=== PATIENT | female | born 1940 | race Caucasian/White ===

== ENCOUNTER 2019-04-09 17:12 | Observation (INO) | payer MEDICARE ==
[2019-04-09 18:01] LABS: Mean Corpuscular HGB CONC 32.9 g/dL (32.0-36.0); Mean Corpuscular Hemoglobin 33.6 pg (27.0-31.0); Mean Platelet Volume 8.1 fL (7.4-10.4); Platelet Count 182 thou/uL (130-400); RBC Distribution Width 13.2 % (11.5-14.5); Red Blood Cell (RBC) Count 3.88 mill/uL (4.20-5.40); White Blood Cell (WBC) Count 5.7 thou/uL (4.8-10.8)
[2019-04-09 18:18] LABS: Band 8 % (5-11); Eosinophils 2 % (0-10); Lymphocytes 8 % (21-51); MDiff Complete? YES; Monocytes 12 % (0-10); Neutrophil 70 % (42-75); Platelet Morphology Comment Appears Adequate
[2019-04-09 18:22] LABS: ALT (SGPT) 16 U/L (8-55); AST (SGOT) 36 U/L (5-34); Albumin 4.1 g/dL (3.4-4.8); Alkaline Phosphatase 98 U/L (40-150); Anion Gap 12 mmol/L (10-20); BUN (Urea Nitrogen) 20 mg/dL (9.8-20.1); Bilirubin, Total 1.3 mg/dL (0.2-1.2); CK (CPK) 67 U/L (29-168); Calc. Creatinine Clearance 0 mL/min (70-130); Calcium 11.1 mg/dL (7.8-10.44); Carbon Dioxide 30 mmol/L (23-31); Chloride 106 mmol/L (98-107); Estimated GFR-MDRD 44; Globulin 3.6 g/dL (2.4-3.5); Glucose 100 mg/dL (83-110); Potassium 3.2 mmol/L (3.5-5.1); Protein, Total 7.7 g/dL (6.0-8.3); Sodium 145 mmol/L (136-145)
[2019-04-09 20:09] LABS: Bilirubin Negative (Negative); Blood, Urine Small (Negative); Clarity TURBID (Clear); Glucose, Urine (Dipstick) Negative (Negative); Leukocyte Moderate (Negative); Nitrite Negative (Negative); Protein, Urine (Dipstick) Negative (Neg-Trace); Specific Gravity, Urine 1.011 (1.002-1.036); pH, Urine 7.5 (5.0-9.0)
[2019-04-09 20:30] LABS: Bacteria/HPF 1+ HPF (None Seen); Squamous Epithelial 0-3 HPF (0-3)
[2019-04-09 20:31] LABS: Pathc Cast-AUWi Flag 2.99 (0-2.49); Yeast-AUWi Flag 53.8 (0-25.0)
[2019-04-09 20:36] LABS: Crystals/HPF 2+ AMORPH PHOS HPF (Negative); Hyaline Casts/LPF 0-3 HYALINE CAST LPF (0-3 Hyaline); WBC/HPF 21-50 HPF (0-3); Yeast-All Forms None Seen HPF (None Seen)
[2019-04-09 20:47] LABS: INR-International Normal Ratio 2.5; Prothrombin Time 27.4 SEC (12.0-14.7)
[2019-04-09 20:51] LABS: Digoxin 0.53 ng/mL (0.8-2.0)
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
[2019-04-09] MEDS ORDERED: cefTRIAXone\\ROCEPHIN 1 GM VIAL ONE (22:55)
[2019-04-10] MEDS ORDERED: Ondansetron PF 4 MG/2 ML Vial IVP PRN (02:32)
[2019-04-10] MEDS ORDERED: Acetaminophen 325 MG TAB PO PRN (02:32)
[2019-04-10] MEDS ORDERED: Ondansetron ODT 4 MG TAB SL PRN (02:32)
[2019-04-10 03:06] LABS: Troponin I 0.024 ng/mL (< 0.028)
[2019-04-10 04:04] VITALS: BMI 22.5
[2019-04-10] MEDS ORDERED: Famotidine 20 MG TAB PO SCH (09:00)
[2019-04-10] MEDS ORDERED: Potassium Chloride 20 MEQ TAB PO SCH ×3 (09:15→18:45)
[2019-04-10] MEDS ORDERED: Furosemide 40 MG/4 ML VIAL SLOW IVP SCH (09:15)
[2019-04-10] MEDS: Aspirin 81 mg Enteric Coated Tablet PO SCH (09:57)
[2019-04-10] MEDS: Digoxin 0.125 MG TAB PO SCH (09:57)
[2019-04-10] MEDS: Topiramate 25 MG TAB PO SCH ×2 (09:58→21:15)
--- NOTE | 2019-04-10 10:02 | ULT ---
US Carotid Doppler STANDARD History: [TIA. CVA.] Comparison: None. Findings: Real-time grayscale, color, and spectral analysis of the extracranial carotid and vertebral arteries was performed. Mild atherosclerotic plaque both carotid bulbs. Antegrade flow both vertebral arteries. No elevated p eak systolic velocities within the internal carotid arteries. Impression: No hemodynamically significant stenosis.
[2019-04-10 15:27] LABS: Anion Gap 13 mmol/L (10-20); BUN (Urea Nitrogen) 22 mg/dL (9.8-20.1); Calc. Creatinine Clearance 44 mL/min (70-130); Calcium 10.4 mg/dL (7.8-10.44); Carbon Dioxide 24 mmol/L (23-31); Chloride 111 mmol/L (98-107); Estimated GFR-MDRD 55; Glucose 90 mg/dL (83-110); Sodium 145 mmol/L (136-145)
--- NOTE | 2019-04-10 16:00 | RAD ---
RADIOGRAPH CHEST 1 VIEW: DATE: 04/10/2019 TIME: 3:54 PM HISTORY: 79-year-old female with generalized weakness COMPARISON: 08/27/2016 FINDINGS: Again noted are the signs of previous CABG. Cardiomegaly. New bilateral small pleural effusions. No c onsolidation. Mild pulmonary vascular prominence. No gosia pulmonary alveolar edema or pneumothorax. IMPRESSION: Cardiomegaly and small bilateral pleural effusions, suggestive of mild congestive heart failure
[2019-04-10] MEDS: Warfarin Sodium 5 MG TAB PO SCH (16:27)
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
[2019-04-10] MEDS ORDERED: Gabapentin 100 MG CAP PO SCH (21:00)
[2019-04-10] MEDS ORDERED: Melatonin 3 MG TAB PO SCH (21:00)
[2019-04-10] MEDS ORDERED: Rosuvastatin 20 MG TAB PO SCH (21:00)
[2019-04-10] MEDS ORDERED: Metoprolol Tartrate 25 MG TAB PO SCH (21:00)
[2019-04-10] MEDS ORDERED: cefTRIAXone\\ROCEPHIN 1 GM in Sodium Chloride 0.9% 100 ML IVPB SCH (23:59)
[2019-04-11 06:15] LABS: Anion Gap 11 mmol/L (10-20); BUN (Urea Nitrogen) 24 mg/dL (9.8-20.1); Calc. Creatinine Clearance 44 mL/min (70-130); Calcium 10.6 mg/dL (7.8-10.44); Carbon Dioxide 22 mmol/L (23-31); Chloride 115 mmol/L (98-107); Estimated GFR-MDRD 54; Glucose 88 mg/dL (83-110); Potassium 3.5 mmol/L (3.5-5.1); Sodium 144 mmol/L (136-145)
[2019-04-11 07:03] LABS: Band 1 % (5-11); Eosinophils 5 % (0-10); Hemoglobin 11.8 g/dL (12.0-16.0); Lymphocytes 18 % (21-51); MDiff Complete? YES; Mean Corpuscular HGB CONC 33.4 g/dL (32.0-36.0); Mean Corpuscular Hemoglobin 33.9 pg (27.0-31.0); Mean Platelet Volume 8.4 fL (7.4-10.4); Monocytes 12 % (0-10); Neutrophil 63 % (42-75); Platelet Count 155 thou/uL (130-400); RBC Distribution Width 13.3 % (11.5-14.5); Red Blood Cell (RBC) Count 3.49 mill/uL (4.20-5.40); White Blood Cell (WBC) Count 5.8 thou/uL (4.8-10.8)
[2019-04-11] MEDS: Digoxin 0.125 MG TAB PO SCH (08:39)
[2019-04-11] MEDS: Aspirin 81 mg Enteric Coated Tablet PO SCH (08:39)
[2019-04-11] MEDS: Topiramate 25 MG TAB PO SCH (08:41)
[2019-04-11] MEDS ORDERED: Furosemide 40 MG TAB PO SCH (09:00)
[2019-04-11] MEDS ORDERED: Famotidine 20 MG TAB PO SCH (09:00)
[2019-04-11] MEDS ORDERED: Docusate 100 MG CAP PO PRN (11:41)
[2019-04-11] MEDS ORDERED: Polyethylene Glycol 3350 17 GM Packet PO PRN (11:41)
[2019-04-11 15:53] VITALS: TEMP 98.6
[2019-04-11] MEDS: Warfarin Sodium 5 MG TAB PO SCH (16:27)
[2019-04-11 21:00] VITALS: BP 158/72
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
== END 2019-04-11 18:42 | disposition home or self-care (01) ==
LOC: ERS 17:12 → 2SE 23:05
PROVIDERS: ADMIT Hospitalist; ATTEND Hospitalist
DX: R53.1 Weakness (principal); R53.83 Other fatigue; N39.0 Urinary tract infection, site not specified; G25.0 Essential tremor; I48.2 Chronic atrial fibrillation; I25.2 Old myocardial infarction; F03.90 Unspecified dementia, unspecified severity, without behavioral disturbance, psychotic disturbance, mood disturbance, and anxiety; R79.89 Other specified abnormal findings of blood chemistry; E83.52 Hypercalcemia; E87.6 Hypokalemia; I11.0 Hypertensive heart disease with heart failure; I50.32 Chronic diastolic (congestive) heart failure; I25.10 Atherosclerotic heart disease of native coronary artery without angina pectoris; F41.9 Anxiety disorder, unspecified; J90 Pleural effusion, not elsewhere classified; Z95.5 Presence of coronary angioplasty implant and graft; Z88.2 Allergy status to sulfonamides; Z79.82 Long term (current) use of aspirin; Z79.01 Long term (current) use of anticoagulants; Z79.899 Other long term (current) drug therapy
CPT/HCPCS: 70450; 71045; 80048 ×2; 80053; 80162; 82306; 82550; 83880; 83970; 84484 ×3; 85025 ×2; 85610; 87086; 93005; 93306; 93880; 96365; 96375; 96376; 97116; 97139 ×2; 97535; 99291; G0378 ×2; 36415; 81003; 81015; J0696; J1940; J3490

== ENCOUNTER 2019-06-03 11:26 | Observation (INO) | payer MEDICARE ==
[2019-06-03 12:24] LABS: #Eosinphils 0.1 thou/uL (0.0-0.7); #Lymphocytes 0.7 thou/uL (1.20-3.40); #Monocytes 0.7 thou/uL (0.11-0.59); %Basophils 0.5 % (0.0-1.0); %Eosinophils 2.1 % (0.0-10.0); %Lymphocytes 13.2 % (21.0-51.0); %Neutrophils 72.2 % (42.0-75.0); Hemoglobin 13.5 g/dL (12.0-16.0); Mean Corpuscular HGB CONC 33.1 g/dL (32.0-36.0); Mean Corpuscular Hemoglobin 32.8 pg (27.0-31.0); Mean Corpuscular Volume 99.2 fL (78.0-98.0); Mean Platelet Volume 8.6 fL (7.4-10.4); Platelet Count 168 thou/uL (130-400); RBC Distribution Width 13.3 % (11.5-14.5); Red Blood Cell (RBC) Count 4.11 mill/uL (4.20-5.40); White Blood Cell (WBC) Count 5.6 thou/uL (4.8-10.8)
--- NOTE | 2019-06-03 12:32 | RAD ---
Exam: Chest one view: HISTORY: Worsening weakness and lethargy history of urinary tract infections COMPARISON: 08/27/2016 and 04/10/2019. Borderline size somewhat globular shaped heart with bilateral pleural effusions without confluent pne umonia. Mild vascular congestion. IMPRESSION: Mild vascular congestion and bilateral pleural effusions actually showing slight improvement from 04/10.
[2019-06-03 12:36] LABS: Lactic Acid 1.7 mmol/L (0.5-2.2)
[2019-06-03 12:43] LABS: ALT (SGPT) 18 U/L (8-55); AST (SGOT) 39 U/L (5-34); Albumin 4.3 g/dL (3.4-4.8); Alkaline Phosphatase 124 U/L (40-150); Anion Gap 9 mmol/L (10-20); BUN (Urea Nitrogen) 26 mg/dL (9.8-20.1); Bilirubin, Total 1.2 mg/dL (0.2-1.2); CK (CPK) 120 U/L (29-168); Calc. Creatinine Clearance 0 mL/min (70-130); Carbon Dioxide 27 mmol/L (23-31); Chloride 109 mmol/L (98-107); Estimated GFR-MDRD 41; Glucose 104 mg/dL (83-110); Lipase 57 U/L (8-78); Potassium 3.5 mmol/L (3.5-5.1); Protein, Total 8.3 g/dL (6.0-8.3); Sodium 141 mmol/L (136-145)
[2019-06-03 12:46] LABS: Calcium 12.3 mg/dL (7.8-10.44)
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
[2019-06-03 13:35] LABS: Bilirubin Negative (Negative); Blood, Urine Negative (Negative); Clarity Turbid (Clear); Glucose, Urine (Dipstick) Normal (Negative); Leukocyte Negative Leu/uL (Negative); Nitrite Negative (Negative); Protein, Urine (Dipstick) 20 mg/dL (Neg-Trace); Urobilinogen Normal mg/dL (Less than 2)
[2019-06-03 15:18] LABS: INR-International Normal Ratio 2.3; PTT 38.3 SEC (22.9-36.1); Prothrombin Time 25.1 SEC (12.0-14.7)
[2019-06-03 15:31] LABS: Phosphorus 2.6 mg/dL (2.3-4.7)
[2019-06-03 15:32] LABS: Digoxin 0.89 ng/mL (0.8-2.0)
[2019-06-03 17:14] LABS: Folate (Folic Acid) 15.8 ng/mL (7.0-31.4)
[2019-06-03] MEDS ORDERED: Acetaminophen 325 MG TAB PO PRN (17:22)
[2019-06-03] MEDS: Sodium Chloride 0.9% 1,000 ML IV SCH (18:37)
[2019-06-03] MEDS ORDERED: Metoprolol Tartrate 25 MG TAB PO SCH (21:00)
[2019-06-03] MEDS ORDERED: Rosuvastatin 20 MG TAB PO SCH (21:00)
--- NOTE | 2019-06-03 21:30 | HP ---
PRIMARY CARE PHYSICIAN: Dr. Marte. CHIEF COMPLAINT: Weakness. HISTORY OF PRESENT ILLNESS: Ms. Forrest is a 79-year-old female, who reported to the emergency room today for increased weakness, brought in by son who reports that she has been sleeping more than normal. He was concerned that she had another stroke or perhaps UTI. The patient denies any pain or complaints. Son reports that he had been giving her Lasix for the last 3 or 4 days. The patient reports that she has fallen once about a week ago when she was trying to get on the toilet. Reports that she hit her head and her right elbow. Reports they hurt somewhat. She was not checked after the fall. Per family, she was seen by the primary care doctor, Dr. Marte, who recommended coming to the ED for concern for stroke, but unclear of when that appointment happened. The patient with a past medical history pertinent for CAD with 3-vessel CABG; CHF, on daily Lasix; AFib, on Coumadin; was recently seen in the hospital in April of this year for similar complaints. At that time, it was thought due to urinary tract infection. The patient at that time refused the MRI of the brain and so it was not done. The patient had an echocardiogram that showed an EF of 50% to 55%. Left atrium was moderately dilated. Right atrium has moderately enlarged right atrium size; mitral valve, mild mitral regurge; tricuspid valve, [id number] tricuspid regurgitation; pulmonic valve, mild pulmonic regurgitation is present. Lab work in the emergency room showed a white blood cell count of 5.6, hemoglobin is 13.5, hematocrit is 40.7. The patient is on Coumadin. PT 25.1, INR is 2.3, APTT 38.3. Sodium is 141, potassium 3.5, chloride 109, carbon dioxide 27, gap is 9, BUN is 26, creatinine is 1.26. Estimated GFR is 41, this is unchanged from her baseline. When it was checked last on 04/11/2019, GFR was 54. Glucose 104. Lactic acid 1.7. Calcium is 12.3. She has run on the high side for high normal for the last several years. When it was checked on 04/11/2019, it was 10.6. Phosphorus here was 2.6. Her PTH, when it was checked in April for high calcium, it was normal at 69.6. Vitamin D in April was 31.1. Vitamin B12 here today is 760. TSH is 1.9. BNP 484. Magnesium is 1.9. Chest x-ray shows mild vascular congestion and bilateral pleural effusions, which show slight improvement from 04/10/2019. CT of the brain showed no acute intracranial findings. Tiny old lacunar infarct at the right caudate nucleus. Right elbow shows no acute findings. The patient is admitted to the observation unit for further management. REVIEW OF SYSTEMS: A 12-point review of systems performed, negative unless mentioned above in the HPI. The patient reports that she has some mild discomfort to right elbow and shoulder, does not elicit any point tenderness on exam. Reports no specific complaints other than feeling weak and recent falls. ALLERGIES: SULFA DRUGS. HOME MEDICATIONS: 1. Aspirin 81 mg p.o. daily. 2. Gabapentin 200 mg p.o. h.s. 3. Melatonin 5 mg p.o. q.p.m. 4. Lopressor 100 mg p.o. q.p.m. 5. Crestor 20 mg p.o. q.p.m. 6. Topiramate 25 mg p.o. b.i.d. 7. Coumadin 5 mg p.o. daily. 8. Digoxin 0.125 mg p.o. daily. 9. Lasix 40 mg p.o. daily. PAST MEDICAL HISTORY: Pertinent for cardiac history including an [place] in 2007, inferior wall, status post PTCA and stent shortly after she had a CABG x2; chronic atrial fibrillation, anticoagulated on Coumadin; essential tremor; hypertension; dyslipidemia; chronic diastolic heart failure; dementia. SURGICAL HISTORY: Positive for 2-vessel CABG in 2005, cholecystectomy, hysterectomy, right leg vein procedure, bilateral carpal tunnel release, bunionectomy. PSYCH HISTORY: Significant for anxiety and dementia. SOCIAL HISTORY: Lives with her spouse, son is nearby. No smoking history. No illicit drug or alcohol use. FAMILY HISTORY: Noncontributory. PHYSICAL EXAMINATION: VITAL SIGNS: Blood pressure 109/52, pulse is 60, respirations 16, temperature is 97.8, O2 saturations are 99% on room air. CONSTITUTIONAL: The patient is alert and oriented to person, place, and time. Her eyes are closed, but she does open them and answer questions. HEENT: Head is atraumatic. She has a small well-healed scab on top of her forehead. Eyes, pupils are equal, round, and reactive to light. Eyelids are normal to inspection. ENT; mucous membranes are moist. Mouth exam is normal. NECK: Normal range of motion. Trachea is midline. RESPIRATORY/CHEST: Breath sounds are clear. No findings of any respiratory distress. CARDIOVASCULAR: Heart sounds are normal. Regular heart rate and rhythm. ABDOMEN: Nontender. Bowel sounds are heard. BACK: Normal inspection. Normal range of motion. EXTREMITIES: Upper extremity motor strength is normal. Sensation intact. Mild tenderness to right elbow. There is healing ecchymosis of indeterminate age to right forearm. Has full range of motion to shoulder. Lower extremity, range of motion is normal. Motor strength is normal. Pedal pulses equal bilateral. There is edema present to bilateral lower extremities, +1. NEUROLOGIC: The patient is oriented to person, place, and time. Speech is normal. She answers all questions, although sometimes they needed to be asked more than once. She is slow to respond at times. SKIN: Warm and dry. Ecchymosis on the right forearm, otherwise normal in color. LABORATORY DATA: EKG in the emergency room shows AFib with controlled ventricular response, beats per minute 61, has an incomplete right bundle-branch block, T-wave is inverted in inferior leads. PLAN AND ASSESSMENT: 1. Increased weakness, etiology is currently unknown. The patient is on several medications including topiramate, gabapentin, and melatonin, which do have some side effects of somnolence. We will hold those for now. I will introduce one at a time and see if she improves overnight. 2. Hypercalcemia. She did have a PTH done in April, which was within normal range. We can repeat that. Creatinine has also bumped today as well as BUN and so we will gently hydrate. Recheck values in the morning. 3. BNP at 484, which is an improvement since when she was here in April. Breath sounds are clear. This appears congestive heart failure, chronic and appears stable. 4. Anticoagulation, on Coumadin. INR is 2.3. This appears stable. We will restart. 5. History of hypertension. We will restart home medication. 6. History of dyslipidemia. We will restart home medication. 7. Case discussed with Dr. Goetz, who agrees with plan. 8. Gastrointestinal prophylaxis will be started. The patient is on Coumadin. 9. Hospital course is depending on clinical findings. Job ID: [id number]
[2019-06-03] MEDS: Topiramate 25 MG TAB PO SCH (22:27)
[2019-06-03] MEDS: Senokot S 8.6-50 MG TAB PO SCH (22:27)
[2019-06-03] MEDS: Famotidine 20 MG TAB PO SCH (22:27)
[2019-06-03] MEDS: Polyethylene Glycol 3350 17 GM Packet PO SCH (22:28)
[2019-06-04 04:51] LABS: #Basophils 0.1 thou/uL (0.0-0.2); #Eosinphils 0.2 thou/uL (0.0-0.7); #Monocytes 0.7 thou/uL (0.11-0.59); #Neutrophils 3.5 thou/uL (1.40-6.50); %Basophils 1.2 % (0.0-1.0); %Eosinophils 2.9 % (0.0-10.0); %Lymphocytes 18.6 % (21.0-51.0); %Monocytes 13.2 % (0.0-10.0); %Neutrophils 64.1 % (42.0-75.0); Hemoglobin 12.2 g/dL (12.0-16.0); Mean Corpuscular HGB CONC 34.3 g/dL (32.0-36.0); Mean Corpuscular Hemoglobin 34.1 pg (27.0-31.0); Mean Corpuscular Volume 99.4 fL (78.0-98.0); Mean Platelet Volume 8.5 fL (7.4-10.4); Platelet Count 151 thou/uL (130-400); RBC Distribution Width 13.4 % (11.5-14.5); Red Blood Cell (RBC) Count 3.57 mill/uL (4.20-5.40); White Blood Cell (WBC) Count 5.4 thou/uL (4.8-10.8)
[2019-06-04 05:09] LABS: ALT (SGPT) 21 U/L (8-55); AST (SGOT) 55 U/L (5-34); Albumin 3.5 g/dL (3.4-4.8); Alkaline Phosphatase 98 U/L (40-150); Anion Gap 12 mmol/L (10-20); BUN (Urea Nitrogen) 26 mg/dL (9.8-20.1); Bilirubin, Total 1.1 mg/dL (0.2-1.2); Calc. Creatinine Clearance 40 mL/min (70-130); Calcium 11.3 mg/dL (7.8-10.44); Carbon Dioxide 20 mmol/L (23-31); Chloride 113 mmol/L (98-107); Estimated GFR-MDRD 50; Globulin 3.3 g/dL (2.4-3.5); Glucose 91 mg/dL (83-110); Potassium 3.2 mmol/L (3.5-5.1); Protein, Total 6.8 g/dL (6.0-8.3); Sodium 142 mmol/L (136-145)
[2019-06-04] MEDS: Senokot S 8.6-50 MG TAB PO SCH (08:59)
[2019-06-04] MEDS: Topiramate 25 MG TAB PO SCH (08:59)
[2019-06-04] MEDS: Famotidine 20 MG TAB PO SCH (08:59)
[2019-06-04] MEDS ORDERED: Furosemide 40 MG TAB PO SCH (09:00)
[2019-06-04] MEDS ORDERED: Digoxin 0.125 MG TAB PO SCH (09:00)
[2019-06-04] MEDS: Polyethylene Glycol 3350 17 GM Packet PO SCH (09:02)
--- NOTE | 2019-06-04 12:05 | MRI ---
Brain MRI without contrast: 06/04/2019 COMPARISON: 05/24/2018 HISTORY: Malaise, assess for acute infarction. TECHNIQUE: Multiplanar multisequence MR imaging of the brain obtained without contrast. FINDINGS: Persistent patient motion artifact limits detailed assessment. The diffusion weighted imaging demonst rates no evidence for acute infarction. Axial gradient echo imaging demonstrates no evidence for intracranial hemorrhage. Distal right vertebral artery flow void appears slightly hyperintense on T2 imaging which may be seco ndary to occlusion or motion artifact. There is mild diffuse cerebral volume loss with associated prominence of the CSF containing spaces. R egional bone marrow signal intensity appears within normal limits. No midline shift or mass effect. IMPRESSION: Motion limited examination as detailed above. No evidence for acute infarction. Transcribed Date/Time: 06/04/2019 12:05 PM
[2019-06-04 12:51] VITALS: TEMP 98.2
[2019-06-04 13:21] VITALS: BMI 22.4
[2019-06-04 13:30] VITALS: BP 154/74
[2019-06-04] MEDS: Sodium Chloride 0.9% 1,000 ML IV SCH (13:56)
[2019-06-04] MEDS ORDERED: Warfarin Sodium 5 MG TAB PO SCH (17:00)
--- NOTE | 2019-06-04 18:06 | DIS ---
DATE OF ADMISSION: 06/03/2019 DATE OF DISCHARGE: 06/04/2019 CHIEF COMPLAINT ON ADMISSION: Generalized weakness. DISCHARGE DIAGNOSES: 1. Generalized weakness, in an elderly patient with multiple comorbidities including advancing dementia, no infectious cause, cerebrovascular accident ruled out. 2. Chronic diastolic heart failure exacerbation, improved since last admission as evidenced by euvolemia on exam. 3. Benign essential tremor. 4. Chronic atrial fibrillation, CHADS-VASc is 5, currently anticoagulated with warfarin with therapeutic INR of 2.3. 5. History of myocardial infarction, status post two-vessel coronary artery bypass grafting in 2005, preserved ejection fraction per echocardiogram on last hospitalization, which was April 2019. 6. Advancing dementia. 7. Hypercalcemia, mild and chronic, with normal vitamin D and PTH. BRIEF HOSPITAL COURSE: The patient is a pleasant 79-year-old female with past medical history significant for dementia, chronic atrial fibrillation, and coronary artery disease, who was brought to the emergency department at the behest of her son and primary care physician, who were concerned regarding complaints of some fatigue. The patient had been sleeping more than normal, and had a fall last week. Her PCP wanted a stroke eval done according to records. Her son was concerned that she may have had another urinary tract infection as her behavior was similar to before. She was admitted to the Hospitalist Service for further workup and treatment. Her UA was negative. The patient had no white count or fever. Her chest x-ray showed improving small bilateral pleural effusions as compared to her last chest x-ray. The patient denies any chest pain or shortness of breath. The patient actually worked with PT and they discharged her to home PT. They did not believe that [facility] or inpatient rehab was necessary after their evaluation. She did walk and ambulate with her walker without issue. I did spend some time talking to her son, who did admit that his mother was not using her walker at all times. She had MRI of the brain performed, which did show some motion artifact, although the radiologist did not discern any acute CVA or any acute intracranial abnormalities. I did have a long conversation with her son regarding her medications. DISCHARGE DISPOSITION: Home with [facility] and home physical therapy. Discharge disposition is stable. DISCHARGE INSTRUCTIONS AND FOLLOWUP: The patient will continue her home medications, although I have written a prescription for Lasix to be given every two days along with a potassium supplement to be taken along with her Lasix. Given her complaints of some generalized weakness, I have decreased her gabapentin to 100 mg nightly. She is to continue her other home medications including her metoprolol, Crestor, topiramate, Coumadin, and digoxin. I have discussed the risks and benefits with her son regarding anticoagulation. His mother has a very high CHADS-VASc score and at this time, I would recommend continued anticoagulation and fall precautions. Case Management was consulted and home health nursing along with PT has been ordered. The patient will be discharged home in good condition today. Job ID: [id number]
[2019-06-05] MEDS ORDERED: Famotidine 20 MG TAB PO SCH (09:00)
== END 2019-06-04 16:31 | disposition home health service (06) ==
LOC: ERS 11:26 → 2SW 15:18
PROVIDERS: ADMIT Internal Medicine; ATTEND Internal Medicine
DX: R53.1 Weakness (principal); I11.0 Hypertensive heart disease with heart failure; I50.33 Acute on chronic diastolic (congestive) heart failure; G25.0 Essential tremor; I48.2 Chronic atrial fibrillation; I25.2 Old myocardial infarction; F03.90 Unspecified dementia, unspecified severity, without behavioral disturbance, psychotic disturbance, mood disturbance, and anxiety; E83.52 Hypercalcemia; I25.10 Atherosclerotic heart disease of native coronary artery without angina pectoris; E78.5 Hyperlipidemia, unspecified; J90 Pleural effusion, not elsewhere classified; F41.9 Anxiety disorder, unspecified; Z95.1 Presence of aortocoronary bypass graft; Z88.2 Allergy status to sulfonamides; Z79.01 Long term (current) use of anticoagulants; Z79.899 Other long term (current) drug therapy
CPT/HCPCS: 51701; 70450; 70551; 71045; 73070; 80053; 80162; 81003; 82140; 82550; 82607; 82746; 83605; 83690; 83880; 83970; 84100; 84484; 85025; 85610; 85730; 93005; 97116; 97139 ×4; 99285; G0378 ×3; 36415; 84443; A4353

== ENCOUNTER 2020-07-15 15:06 | Emergency (ER) | payer MEDICARE ==
--- NOTE | 2020-07-15 15:54 | RAD ---
LEFT HAND: 07/15/20 Three views. HISTORY: Hand pain. Injury. 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 Moderate DJD in the intercarpal joints. J oint narrowing of MCP joints and mild DJD at the IP joints. No evidence of fracture or acute abnormal ity. POS: [facility]
--- NOTE | 2020-07-15 15:57 | RAD ---
LEFT WRIST: 07/15/20 Three views. HISTORY: Injury with pain. Prominent DJD at the first carpometacarpal joint. Narrowing of the radiocarpal joint and degenerative changes in the intercarpal joints. The oblique view shows evidence of a fracture from the triquetrum along its ulnar aspect. This is not confirmed on the lateral projection. Suggest immobilization and short term follow-up. IMPRESSION: Degenerative changes in the carpal bones. Question fracture of the triquetrum seen only on the obliqu e projection. Follow-up recommended. POS: [facility]
[2020-07-15] MEDS ORDERED: Acetaminophen 325 MG TAB ONE (16:21)
[2020-07-15] MEDS ORDERED: HYDROcodone/Acetaminophen 5/325 mg Tablet ONE (16:21)
== END 2020-07-15 17:30 | disposition home or self-care (01) ==
LOC: ERS 15:06
DX: S62.112A Displaced fracture of triquetrum [cuneiform] bone, left wrist, initial encounter for closed fracture (principal); I50.9 Heart failure, unspecified; I25.2 Old myocardial infarction; I48.91 Unspecified atrial fibrillation; I25.10 Atherosclerotic heart disease of native coronary artery without angina pectoris; F41.9 Anxiety disorder, unspecified; Z79.01 Long term (current) use of anticoagulants; Z79.899 Other long term (current) drug therapy; W22.8XXA Striking against or struck by other objects, initial encounter
CPT/HCPCS: 29125

== ENCOUNTER 2020-12-08 10:53 | Outpatient (CLI) | payer MEDICARE | END 2020-12-08 10:54 | disposition home or self-care (01) | LOC: BICRAD 10:53 | PROVIDERS: ATTEND Nurse Practitioner Family | DX: Z12.31 Encounter for screening mammogram for malignant neoplasm of breast (principal); M53.3 Sacrococcygeal disorders, not elsewhere classified; M54.5 Low back pain; M54.6 Pain in thoracic spine; M47.816 Spondylosis without myelopathy or radiculopathy, lumbar region; M47.814 Spondylosis without myelopathy or radiculopathy, thoracic region; S32.10XA Unspecified fracture of sacrum, initial encounter for closed fracture | CPT/HCPCS: 72072; 72100; 72220; 77063; 77067 ==

== ENCOUNTER 2021-01-16 16:23 | Inpatient (IN) | payer MEDICARE ==
[2021-01-16 18:28] LABS: #Basophils 0.1 thou/uL (0.0-0.2); #Eosinphils 0.2 thou/uL (0.0-0.7); #Lymphocytes 0.7 thou/uL (1.20-3.40); #Monocytes 0.8 thou/uL (0.11-0.59); #Neutrophils 4.4 thou/uL (1.40-6.50); %Eosinophils 2.5 % (0.0-10.0); %Lymphocytes 11.1 % (21.0-51.0); %Monocytes 13.7 % (0.0-10.0); %Neutrophils 71.7 % (42.0-75.0); Hemoglobin 11.4 g/dL (12.0-16.0); Mean Corpuscular Volume 96.9 fL (78.0-98.0); Mean Platelet Volume 8.2 fL (7.4-10.4); Platelet Count 227 thou/uL (130-400); RBC Distribution Width 15.7 % (11.5-14.5); Red Blood Cell (RBC) Count 3.68 mill/uL (4.20-5.40); White Blood Cell (WBC) Count 6.1 thou/uL (4.8-10.8)
[2021-01-16 18:54] LABS: ALT (SGPT) 28 U/L (8-55); AST (SGOT) 47 U/L (5-34); Albumin 3.2 g/dL (3.4-4.8); Alkaline Phosphatase 138 U/L (40-110); Anion Gap 12 mmol/L (10-20); BUN (Urea Nitrogen) 32 mg/dL (9.8-20.1); Bilirubin, Total 0.9 mg/dL (0.2-1.2); Calc. Creatinine Clearance 0 mL/min (70-130); Calcium 9.8 mg/dL (7.8-10.44); Carbon Dioxide 29 mmol/L (23-31); Chloride 107 mmol/L (98-107); Globulin 2.9 g/dL (2.4-3.5); Glucose 100 mg/dL (83-110); Potassium 4.2 mmol/L (3.5-5.1); Protein, Total 6.1 g/dL (5.8-8.1); Sodium 144 mmol/L (136-145)
[2021-01-16 19:16] LABS: CKMB 2.7 ng/mL (0-6.6)
[2021-01-16] MEDS ORDERED: Furosemide 20 MG/2 ML VIAL ONE (19:45)
[2021-01-16] MEDS ORDERED: Aspirin Chewable 81 MG TAB ONE (20:08)
[2021-01-16 20:14] LABS: INR-International Normal Ratio 2.1; PTT 36.3 sec (22.9-36.1); Prothrombin Time 24.1 sec (12.0-14.7)
[2021-01-16] MEDS ORDERED: Warfarin Sodium 3 MG TAB PO SCH (21:45)
[2021-01-16 22:23] LABS: Troponin I 0.038 ng/mL (< 0.028)
[2021-01-16] MEDS ORDERED: Bisacodyl 5 MG TAB PO PRN (23:58)
[2021-01-16] MEDS ORDERED: Ondansetron PF 4 MG/2 ML Vial IVP PRN (23:58)
[2021-01-16] MEDS ORDERED: Ondansetron ODT 4 MG TAB PO PRN (23:58)
[2021-01-17] MEDS ORDERED: traMADol HCl 50 MG TAB PO PRN (00:09)
[2021-01-17 01:18] LABS: Troponin I 0.051 ng/mL (< 0.028)
[2021-01-17 04:42] LABS: SARS-CoV-2 PCR by NAA Not Detected (NotDetected)
[2021-01-17 05:06] LABS: #Lymphocytes 0.5 thou/uL (1.20-3.40); #Monocytes 1.1 thou/uL (0.11-0.59); #Neutrophils 12.9 thou/uL (1.40-6.50); %Basophils 0.3 % (0.0-1.0); %Eosinophils 0.2 % (0.0-10.0); %Lymphocytes 3.3 % (21.0-51.0); %Monocytes 7.6 % (0.0-10.0); %Neutrophils 88.6 % (42.0-75.0); Hemoglobin 11.7 g/dL (12.0-16.0); Mean Corpuscular HGB CONC 31.9 g/dL (32.0-36.0); Mean Corpuscular Hemoglobin 30.7 pg (27.0-31.0); Mean Corpuscular Volume 96.3 fL (78.0-98.0); Mean Platelet Volume 8.4 fL (7.4-10.4); Platelet Count 231 thou/uL (130-400); RBC Distribution Width 15.7 % (11.5-14.5); Red Blood Cell (RBC) Count 3.82 mill/uL (4.20-5.40); White Blood Cell (WBC) Count 14.6 thou/uL (4.8-10.8)
[2021-01-17] MEDS: Furosemide 40 MG/4 ML VIAL SLOW IVP SCH ×2 (05:25→14:57)
[2021-01-17 05:30] LABS: Anion Gap 13 mmol/L (10-20); BUN (Urea Nitrogen) 31 mg/dL (9.8-20.1); Calc. Creatinine Clearance 42 mL/min (70-130); Calcium 10.2 mg/dL (7.8-10.44); Carbon Dioxide 27 mmol/L (23-31); Cardiac Risk 2.1 (Less than 4.5); Chloride 108 mmol/L (98-107); Cholesterol 99 mg/dl (< 200 Desired); Glucose 89 mg/dL (83-110); HDL Cholesterol 47 mg/dL (>60 Neg Risk); LDL Cholesterol, Calculated 41 mg/dL; Potassium 3.9 mmol/L (3.5-5.1); Sodium 144 mmol/L (136-145); Triglycerides 54 mg/dL (Less than 150)
[2021-01-17] MEDS: Acetaminophen 325 MG TAB PO PRN ×2 (08:03→08:39)
[2021-01-17] MEDS: Metoprolol Tartrate 100 MG TAB PO SCH ×2 (08:04→12:50)
[2021-01-17] MEDS: Digoxin 0.125 MG TAB PO SCH ×2 (08:04→12:49)
[2021-01-17] MEDS: Potassium Chloride 20 MEQ TAB PO SCH ×2 (08:04→12:49)
[2021-01-17] MEDS: Topiramate 25 MG TAB PO SCH ×3 (08:04→22:09)
[2021-01-17] MEDS: Famotidine 20 MG TAB PO SCH ×2 (08:04→12:50)
[2021-01-17] MEDS: Rosuvastatin 20 MG TAB PO SCH ×2 (08:04→12:50)
[2021-01-17] MEDS: Aspirin 81 mg Enteric Coated Tablet PO SCH ×2 (08:04→12:49)
[2021-01-17] MEDS ORDERED: Acetaminophen 650 MG Suppository PR PRN (08:25)
[2021-01-17 08:42] LABS: Actual Bicarbonate (HCO3a) 26.1 mEq/L (22-28); Base Excess (BEa) 3.4 mEq/L (-2.0 to +3.0); CO2 Tension 33.1 mmHg (35.0-45.0); Calcium, Ionized (arterial) 1.25 mmol/L (1.12-1.30); Carboxyhemoglobin (COHb) 0.9 gm% (0.0-3.0); Hemoglobin (Hb) 11.4 g/dL (12.0-16.0); O2 Tension (PaO2), arterial 80.4 mmHg (> 70.0); Potassium - ABG Lab 3.65 mmol/L (3.70-5.30); pH, Arterial 7.52 (7.35-7.45)
[2021-01-17 08:44] LABS: Puncture Site LBA
[2021-01-17] MEDS ORDERED: FLU VACC QS2020-21(65YR UP)/PF 240 MCG/0.7 ML SYRINGE IM ONE (09:00)
[2021-01-17 09:35] LABS: CKMB 1.2 ng/mL (0-6.6)
[2021-01-17] MEDS ORDERED: Iopamidol 370 76% 100 ML VIAL ONE (10:05)
[2021-01-17 10:34] LABS: Bacteria/HPF 2+ HPF (None Seen); Bilirubin Negative (Negative); Blood, Urine 1+ (Negative); Clarity Turbid (Clear); Glucose, Urine (Dipstick) Normal (Negative); Ketone, Urine Negative (Negative); Leukocyte 250 Leu/uL (Negative); Nitrite 2+ (Negative); Protein, Urine (Dipstick) Negative (Neg-Trace); Specific Gravity, Urine 1.011 (1.002-1.036); Urobilinogen Normal mg/dL (Less than 2)
[2021-01-17] MEDS: VANCOMYCIN 1.25 GM/250 ML BAG 1.25 GM in Premix Bag 1 BAG IVPB SCH (11:27)
[2021-01-17 13:40] LABS: Hemoglobin 11.8 g/dL (12.0-16.0); Platelet Count 205 thou/uL (130-400)
[2021-01-17 13:47] LABS: INR-International Normal Ratio 2.1; Prothrombin Time 23.9 sec (12.0-14.7)
[2021-01-17] MEDS: Piperacillin/Tazobactam 3.375 GM in Sodium Chloride 0.9% 100 ML IVPB SCH ×2 (14:57→18:48)
[2021-01-17] MEDS: Warfarin Sodium 2.5 MG TAB PO SCH (17:34)
[2021-01-17] MEDS ORDERED: Vancomycin 1 GM in Premix Bag 1 BAG IVPB SCH (21:00)
[2021-01-17] MEDS: Melatonin 3 MG TAB PO SCH (22:09)
[2021-01-18] MEDS: Piperacillin/Tazobactam 3.375 GM in Sodium Chloride 0.9% 100 ML IVPB SCH ×3 (00:54→11:38)
[2021-01-18 04:13] LABS: INR-International Normal Ratio 2.7; PTT 47.2 sec (22.9-36.1); Prothrombin Time 29.2 sec (12.0-14.7)
[2021-01-18] MEDS: Furosemide 40 MG/4 ML VIAL SLOW IVP SCH (06:16)
[2021-01-18] MEDS: Potassium Chloride 20 MEQ TAB PO SCH (09:27)
[2021-01-18] MEDS: Famotidine 20 MG TAB PO SCH (09:27)
[2021-01-18] MEDS: Rosuvastatin 20 MG TAB PO SCH (09:27)
[2021-01-18] MEDS: Aspirin 81 mg Enteric Coated Tablet PO SCH (09:27)
[2021-01-18] MEDS: Digoxin 0.125 MG TAB PO SCH (09:27)
[2021-01-18] MEDS: Metoprolol Tartrate 100 MG TAB PO SCH (09:39)
[2021-01-18 09:41] LABS: #Basophils 0.1 thou/uL (0.0-0.2); #Lymphocytes 0.5 thou/uL (1.20-3.40); #Monocytes 0.7 thou/uL (0.11-0.59); #Neutrophils 16.2 thou/uL (1.40-6.50); %Basophils 0.7 % (0.0-1.0); %Eosinophils 0.2 % (0.0-10.0); %Lymphocytes 2.7 % (21.0-51.0); %Monocytes 4.2 % (0.0-10.0); %Neutrophils 92.2 % (42.0-75.0); Hemoglobin 10.5 g/dL (12.0-16.0); Mean Corpuscular HGB CONC 31.6 g/dL (32.0-36.0); Mean Platelet Volume 8.5 fL (7.4-10.4); Platelet Count 182 thou/uL (130-400); RBC Distribution Width 16.2 % (11.5-14.5); White Blood Cell (WBC) Count 17.6 thou/uL (4.8-10.8)
[2021-01-18 09:53] LABS: INR-International Normal Ratio 2.8; Prothrombin Time 29.9 sec (12.0-14.7)
[2021-01-18 10:08] LABS: Anion Gap 13 mmol/L (10-20); BUN (Urea Nitrogen) 41 mg/dL (9.8-20.1); Calc. Creatinine Clearance 28 mL/min (70-130); Calcium 9.5 mg/dL (7.8-10.44); Carbon Dioxide 26 mmol/L (23-31); Chloride 110 mmol/L (98-107); Glucose 208 mg/dL (83-110); Potassium 3.5 mmol/L (3.5-5.1); Sodium 145 mmol/L (136-145)
[2021-01-18] MEDS: Topiramate 25 MG TAB PO SCH ×2 (11:38→20:46)
[2021-01-18] MEDS: VANCOMYCIN 1.25 GM/250 ML BAG 1.25 GM in Premix Bag 1 BAG IVPB SCH (11:38)
[2021-01-18] MEDS: cefTRIAXone\\ROCEPHIN 2 GM in Sodium Chloride 0.9% 100 ML IVPB SCH (20:17)
[2021-01-18] MEDS: Melatonin 3 MG TAB PO SCH (20:46)
[2021-01-19] MEDS: Senokot S 8.6-50 MG TAB PO PRN (03:01)
[2021-01-19 04:10] LABS: Band 2 % (5-11); Hemoglobin 10.6 g/dL (12.0-16.0); Hypochromia SLIGHT = 6-15 cells (100X) (0-5/hpf); MDiff Complete? YES; Mean Corpuscular HGB CONC 31.1 g/dL (32.0-36.0); Mean Corpuscular Hemoglobin 30.6 pg (27.0-31.0); Mean Corpuscular Volume 98.4 fL (78.0-98.0); Mean Platelet Volume 8.5 fL (7.4-10.4); Monocytes 16 % (0-10); Neutrophil 82 % (42-75); Platelet Count 180 thou/uL (130-400); Platelet Morphology Comment Appears Adequate; RBC Distribution Width 15.9 % (11.5-14.5); Red Blood Cell (RBC) Count 3.45 mill/uL (4.20-5.40); White Blood Cell (WBC) Count 13.3 thou/uL (4.8-10.8)
[2021-01-19 04:20] LABS: Anion Gap 13 mmol/L (10-20); BUN (Urea Nitrogen) 39 mg/dL (9.8-20.1); Calc. Creatinine Clearance 29 mL/min (70-130); Calcium 9.7 mg/dL (7.8-10.44); Carbon Dioxide 27 mmol/L (23-31); Chloride 109 mmol/L (98-107); Glucose 127 mg/dL (83-110); Potassium 3.7 mmol/L (3.5-5.1); Sodium 145 mmol/L (136-145)
[2021-01-19 08:59] LABS: Hemoglobin 10.4 g/dL (12.0-16.0); Platelet Count 185 thou/uL (130-400)
[2021-01-19] MEDS: Potassium Chloride 20 MEQ TAB PO SCH (09:00)
[2021-01-19] MEDS: Digoxin 0.125 MG TAB PO SCH (09:00)
[2021-01-19] MEDS: Rosuvastatin 20 MG TAB PO SCH (09:00)
[2021-01-19] MEDS: Topiramate 25 MG TAB PO SCH ×2 (09:00→20:10)
[2021-01-19] MEDS: Metoprolol Tartrate 100 MG TAB PO SCH (09:00)
[2021-01-19 09:12] LABS: Vancomycin, Trough 11.7 ug/mL
[2021-01-19 09:48] LABS: INR-International Normal Ratio 2.6; Prothrombin Time 28.2 sec (12.0-14.7)
[2021-01-19] MEDS: cefTRIAXone\\ROCEPHIN 2 GM in Sodium Chloride 0.9% 100 ML IVPB SCH (18:41)
[2021-01-19] MEDS: Melatonin 3 MG TAB PO SCH (20:09)
[2021-01-20 08:54] LABS: Prothrombin Time 23.5 sec (12.0-14.7)
[2021-01-20] MEDS: Rosuvastatin 20 MG TAB PO SCH (09:20)
[2021-01-20] MEDS: Digoxin 0.125 MG TAB PO SCH (09:20)
[2021-01-20] MEDS: Potassium Chloride 20 MEQ TAB PO SCH (09:21)
[2021-01-20] MEDS: Metoprolol Tartrate 100 MG TAB PO SCH (09:21)
[2021-01-20] MEDS: Topiramate 25 MG TAB PO SCH ×2 (09:24→21:44)
[2021-01-20] MEDS: Warfarin Sodium 2.5 MG TAB PO SCH (16:24)
[2021-01-20] MEDS: cefTRIAXone\\ROCEPHIN 2 GM in Sodium Chloride 0.9% 100 ML IVPB SCH (16:28)
[2021-01-20] MEDS: Melatonin 3 MG TAB PO SCH (21:44)
[2021-01-21 07:22] LABS: Hemoglobin 11.2 g/dL (12.0-16.0); Platelet Count 203 thou/uL (130-400)
[2021-01-21] MEDS: Digoxin 0.125 MG TAB PO SCH (09:24)
[2021-01-21] MEDS: Topiramate 25 MG TAB PO SCH ×2 (09:27→20:31)
[2021-01-21] MEDS: Rosuvastatin 20 MG TAB PO SCH (09:27)
[2021-01-21] MEDS: Potassium Chloride 20 MEQ TAB PO SCH (09:28)
[2021-01-21] MEDS: Metoprolol Tartrate 100 MG TAB PO SCH (12:06)
[2021-01-21] MEDS: Warfarin Sodium 2.5 MG TAB PO SCH (16:48)
[2021-01-21] MEDS: cefTRIAXone\\ROCEPHIN 2 GM in Sodium Chloride 0.9% 100 ML IVPB SCH (17:30)
[2021-01-21] MEDS: Melatonin 3 MG TAB PO SCH (20:31)
[2021-01-22 04:58] LABS: INR-International Normal Ratio 1.8; Prothrombin Time 21.3 sec (12.0-14.7)
[2021-01-22] MEDS: Potassium Chloride 20 MEQ TAB PO SCH (08:46)
[2021-01-22] MEDS: Topiramate 25 MG TAB PO SCH ×2 (08:47→21:34)
[2021-01-22] MEDS: Rosuvastatin 20 MG TAB PO SCH (08:47)
[2021-01-22] MEDS: Metoprolol Tartrate 100 MG TAB PO SCH (08:47)
[2021-01-22] MEDS: Digoxin 0.125 MG TAB PO SCH (08:47)
[2021-01-22] MEDS: Warfarin Sodium 3 MG TAB PO SCH (17:21)
[2021-01-22] MEDS: cefTRIAXone\\ROCEPHIN 2 GM in Sodium Chloride 0.9% 100 ML IVPB SCH (17:35)
[2021-01-22] MEDS: Melatonin 3 MG TAB PO SCH (21:33)
[2021-01-23 05:34] LABS: INR-International Normal Ratio 1.8; Prothrombin Time 21.7 sec (12.0-14.7)
[2021-01-23 07:55] LABS: Hemoglobin 11.8 g/dL (12.0-16.0); Platelet Count 244 thou/uL (130-400)
[2021-01-23] MEDS: Rosuvastatin 20 MG TAB PO SCH (08:46)
[2021-01-23] MEDS: Topiramate 25 MG TAB PO SCH ×2 (08:46→20:41)
[2021-01-23] MEDS: Metoprolol Tartrate 100 MG TAB PO SCH (08:46)
[2021-01-23] MEDS: Potassium Chloride 20 MEQ TAB PO SCH (08:46)
[2021-01-23] MEDS: Digoxin 0.125 MG TAB PO SCH (08:47)
[2021-01-23] MEDS: cefTRIAXone\\ROCEPHIN 2 GM in Sodium Chloride 0.9% 100 ML IVPB SCH (17:39)
[2021-01-23] MEDS: Warfarin Sodium 3 MG TAB PO SCH (17:39)
[2021-01-23] MEDS: Melatonin 3 MG TAB PO SCH (20:41)
[2021-01-24 06:16] LABS: Prothrombin Time 23.5 sec (12.0-14.7)
[2021-01-24] MEDS: Senokot S 8.6-50 MG TAB PO PRN (08:57)
[2021-01-24] MEDS: Potassium Chloride 20 MEQ TAB PO SCH (08:57)
[2021-01-24] MEDS: Topiramate 25 MG TAB PO SCH ×2 (08:57→21:00)
[2021-01-24] MEDS: Rosuvastatin 20 MG TAB PO SCH (08:57)
[2021-01-24] MEDS: Digoxin 0.125 MG TAB PO SCH (09:01)
[2021-01-24] MEDS: Metoprolol Tartrate 100 MG TAB PO SCH (09:10)
[2021-01-24] MEDS: Warfarin Sodium 3 MG TAB PO SCH (18:03)
[2021-01-24] MEDS: cefTRIAXone\\ROCEPHIN 2 GM in Sodium Chloride 0.9% 100 ML IVPB SCH (18:03)
[2021-01-24] MEDS: Melatonin 3 MG TAB PO SCH (21:00)
[2021-01-25 05:01] LABS: INR-International Normal Ratio 2.1; Prothrombin Time 23.8 sec (12.0-14.7)
[2021-01-25] MEDS: Acetaminophen 325 MG TAB PO PRN (08:18)
[2021-01-25] MEDS: Topiramate 25 MG TAB PO SCH ×2 (08:18→21:08)
[2021-01-25] MEDS: Metoprolol Tartrate 100 MG TAB PO SCH (08:19)
[2021-01-25] MEDS: Digoxin 0.125 MG TAB PO SCH (08:19)
[2021-01-25] MEDS: Potassium Chloride 20 MEQ TAB PO SCH (08:19)
[2021-01-25] MEDS: Rosuvastatin 10 MG TAB PO SCH (08:19)
[2021-01-25] MEDS: Warfarin Sodium 3 MG TAB PO SCH (17:46)
[2021-01-25] MEDS: cefTRIAXone\\ROCEPHIN 2 GM in Sodium Chloride 0.9% 100 ML IVPB SCH (17:47)
[2021-01-25] MEDS: Melatonin 3 MG TAB PO SCH (21:08)
[2021-01-26] MEDS: Potassium Chloride 20 MEQ TAB PO SCH (09:55)
[2021-01-26] MEDS: Digoxin 0.125 MG TAB PO SCH ×2 (09:56→11:45)
[2021-01-26] MEDS: Rosuvastatin 10 MG TAB PO SCH (09:56)
[2021-01-26] MEDS: Metoprolol Tartrate 100 MG TAB PO SCH (09:56)
[2021-01-26] MEDS: Topiramate 25 MG TAB PO SCH (09:58)
[2021-01-26 15:20] VITALS: BMI 24.0
[2021-01-26 16:09] VITALS: BP 103/58; TEMP 97.5
[2021-01-26] MEDS: Warfarin Sodium 3 MG TAB PO SCH (17:20)
[2021-01-26] MEDS ORDERED: Cephalexin 250 MG CAP PO SCH (21:00)
[2021-01-27] MEDS ORDERED: Furosemide 20 MG TAB PO SCH (09:00)
== END 2021-01-26 18:13 | DRG 871 ==
LOC: ERS 16:23 → 2NO 21:10 → IMCU/EMU 01-17 12:30 → 2SE 01-19 17:50
PROVIDERS: ADMIT Student in an Organized Health Care Education/Training Program; ATTEND Internal Medicine
DX: A41.9 Sepsis, unspecified organism (principal); I50.33 Acute on chronic diastolic (congestive) heart failure; I13.0 Hypertensive heart and chronic kidney disease with heart failure and stage 1 through stage 4 chronic kidney disease, or unspecified chronic kidney disease; N17.9 Acute kidney failure, unspecified; N39.0 Urinary tract infection, site not specified; L03.116 Cellulitis of left lower limb; I48.20 Chronic atrial fibrillation, unspecified; G45.9 Transient cerebral ischemic attack, unspecified; Z20.822 Contact with and (suspected) exposure to COVID-19; I25.10 Atherosclerotic heart disease of native coronary artery without angina pectoris; R79.1 Abnormal coagulation profile; N18.30 Chronic kidney disease, stage 3 unspecified; E78.5 Hyperlipidemia, unspecified; R77.8 Other specified abnormalities of plasma proteins; F41.9 Anxiety disorder, unspecified; B96.89 Other specified bacterial agents as the cause of diseases classified elsewhere; B96.20 Unspecified Escherichia coli [E. coli] as the cause of diseases classified elsewhere; I25.5 Ischemic cardiomyopathy; F01.50 Vascular dementia, unspecified severity, without behavioral disturbance, psychotic disturbance, mood disturbance, and anxiety; Z95.5 Presence of coronary angioplasty implant and graft; Z91.19 Patient's noncompliance with other medical treatment and regimen; Z95.1 Presence of aortocoronary bypass graft; Z90.49 Acquired absence of other specified parts of digestive tract; Z90.710 Acquired absence of both cervix and uterus; Z79.84 Long term (current) use of oral hypoglycemic drugs; Z79.899 Other long term (current) drug therapy
CPT/HCPCS: 36415; 36416; 36600; 70450; 70496; 70498; 70551; 71046; 80048; 80053; 80061; 80202; 81003; 81015; 82553; 82805; 83605; 83735; 83880; 84443; 84484; 85014; 85018; 85025; 85049; 85610; 85730; 87040; 87077; 87086; 87186; 87635; 93005; 93010; 94760; 95712; 95819; 95957; 96374; J0696; J1940; J2543; J3370; J3490; Q9967; U0003; U0005